=== PATIENT | female | born 1975 | race Caucasian/White ===

== ENCOUNTER → 2023-09-13 | Day surgery (SDC) | payer BC ==
[~2023-09-13] VITALS: Ht 157.5 cm; Wt 107.3 kg
[~2023-09-13] MED LIST: FASTIN30 MG PO; NO HOME MEDICATIONS
[2023-09-13 09:02] VITALS: BP 145/74; PULSE 80; TEMP 97.3
--- NOTE | 2023-09-13 09:10 | NUR ---
0818 Pt ambulatory to bay 4 with steady gait, breathing even and unlabored. Pt is alert and oriented, accompanied by her . Consents reviewed and signed by pt. IV established. LR infusing via gravity at KVO. Call light in reach. Warm blanket provided.
[2023-09-13 10:45] VITALS: BP 127/66; PULSE 88; TEMP 97.4
[2023-09-13 11:00] VITALS: BP 124/86; PULSE 80
[2023-09-13 11:10] VITALS: BP 142/86; PULSE 70
--- NOTE | 2023-09-13 11:20 | NUR ---
1045 RETURNS TO ROOM 4 PER CART. AWAKE, ALERT. RESP UNLABORED. AMBULATES TO RECLINER WITH STANDBY ASSIST. DENIES NAUSEA OR ABD PAIN. VITAL SIGNS OBTAINED. CALL LIGHT AT SIDE. IN ROOM. DR ABARCA SPOKE WITH PRIOR TO PATIENT RETURNING TO ROOM 1100 TOLERATES PO JUICE AND MUFFIN WITHOUT NAUSEA. 1105 DISCHARGE INSTRUCTIONS REVIEWED. PATIENT VERBALIZES UNDERSTANDING. COPY PROVIDED IN DISCHARGE FOLDER 1115 DRESSES SELF
== END ==
LOC: SDCO 07:30
DX: Z12.11 Encounter for screening for malignant neoplasm of colon (principal); E66.01 Morbid (severe) obesity due to excess calories
CPT/HCPCS: J2704; J7120